=== PATIENT | female | born 1950 | race Caucasian/White ===

== ENCOUNTER 2022-10-13 05:36 | Emergency (ER) | payer OTHER ==
[~2022-10-13] VITALS: Ht 165.1 cm; Wt 83.9 kg
[2022-10-13] MEDS ORDERED: ACETAMINOPHEN ES 500 MG TABLET ONE (06:12)
[2022-10-13] MEDS ORDERED: ACETAMINOPHEN ES 500 MG TABLET PO ONE (06:30)
[2022-10-13] MEDS ORDERED: IV NS 0.9% 500 ML BAG IV ONE (06:30)
[2022-10-13 06:42] LABS: BASOPHILS % (AUTO) 0.3 % (0.0-2.0); EOSINOPHILS # (AUTO) 0.1 K/uL (0.0-0.7); HEMATOCRIT 47 % (33-45); HEMOGLOBIN 15.6 g/dL (11.5-14.8); LYMPHOCYTES # (AUTO) 0.5 K/uL (0.8-4.8); MEAN CORPUSCULAR HEMOGLOBIN 32 PG (26.0-33.0); MEAN CORPUSCULAR HGB CONC 33 g/dl (31.0-36.0); MEAN CORPUSCULAR VOLUME 96 fL (82-100); MONOCYTES # (AUTO) 0.9 K/uL (0.1-1.30); MONOCYTES % (AUTO) 9.6 % (2.0-12.0); NEUTROPHILS # (AUTO) 7.9 K/uL (1.8-8.9); NEUTROPHILS % (AUTO) 84.1 % (43.0-81.0); PLATELET COUNT (AUTO) 163 K/uL (150-450); RED BLOOD CELL COUNT(AUTO) 4.94 MIL/uL (4.0-5.2); RED CELL DISTRIBUTION WIDTH 13.8 % (11.5-15.0); WHITE BLOOD COUNT (AUTO) 9.4 K/uL (4.3-11.0)
[2022-10-13] MEDS ORDERED: TDAP [DIPH/PERTUSSIS/TET] 0.5 ML VIAL IM ONE ×2 (07:19→07:30)
[2022-10-13 07:20] LABS: ALANINE AMINOTRANSFERASE 29 U/L (12-78); ALBUMIN 3.4 g/dL (3.4-5.0); ALKALINE PHOSPHATASE 110 U/L (46-116); ASPARTATE AMINOTRANSFERASE 33 U/L (15-37); BILIRUBIN,DIRECT 0.2 mg/dL (0.0-0.2); BILIRUBIN,TOTAL 0.5 mg/dL (0.2-1.0); CALCIUM, SERUM 9.5 mg/dL (8.5-10.1); CARBON DIOXIDE 26 mmol/L (21-32); CHLORIDE 97 mmol/L (98-107); CREATININE 1.3 mg/dL (0.6-1.3); GLUCOSE 259 mg/dL (74-106); POTASSIUM 3.7 mmol/L (3.5-5.1); SODIUM SERUM 135 mmol/L (136-145); TOTAL PROTEIN, SERUM 8.5 g/dL (6.4-8.2); UREA NITROGEN, BLOOD 21 mg/dL (7-18)
[2022-10-13] MEDS ORDERED: BACI/NEOM/POLY B OINT PKT 1 UDPKT PACKET ONE (07:24)
[2022-10-13] MEDS ORDERED: BACI/NEOM/POLY B OINT PKT 1 UDPKT PACKET TP ONE (07:30)
[2022-10-13] MEDS ORDERED: ASPIRIN 81 MG TAB.CHEW ONE (08:00)
[2022-10-13] MEDS ORDERED: ASPIRIN 81 MG TAB.CHEW PO ONE (08:00)
[2022-10-13] MEDS ORDERED: ACETAMINOPHEN 325 MG TABLET ONE (10:40)
[2022-10-13] MEDS ORDERED: ACETAMINOPHEN 325 MG TABLET PO ONE (11:00)
[2022-10-13 14:00] VITALS: BP 131/55; TEMP 98; O2SAT 97
[2022-10-13] MEDS ORDERED: ACYC400T19 PO (14:46)
[2022-10-13] MEDS ORDERED: FURO20TA4 PO (14:46)
[2022-10-13] MEDS ORDERED: FAMO40TA7 PO (14:46)
[2022-10-13] MEDS ORDERED: GLIP10TA11 PO (14:46)
[2022-10-13] MEDS ORDERED: INSU100I14 SQ (14:46)
[2022-10-13] MEDS ORDERED: NPH,100I SQ (14:46)
[2022-10-13] MEDS ORDERED: MONT10TA22 PO (14:46)
[2022-10-13] MEDS ORDERED: FENO160T PO (14:46)
[2022-10-13] MEDS ORDERED: OMEG-72 PO (14:46)
== END 2022-10-13 15:48 | disposition short-term general hospital (02) ==
LOC: ER 05:42
DX: I21.4 Non-ST elevation (NSTEMI) myocardial infarction (principal); S00.83XA Contusion of other part of head, initial encounter; S50.312A Abrasion of left elbow, initial encounter; G89.29 Other chronic pain; M54.40 Lumbago with sciatica, unspecified side; U07.1 COVID-19; I11.0 Hypertensive heart disease with heart failure; I50.9 Heart failure, unspecified; E11.9 Type 2 diabetes mellitus without complications; Z88.8 Allergy status to other drugs, medicaments and biological substances; W18.30XA Fall on same level, unspecified, initial encounter; Y93.89 Activity, other specified; Y92.89 Other specified places as the place of occurrence of the external cause; Y99.8 Other external cause status
CPT/HCPCS: 99285; 96360; 70450; 71045; 87426; 93005 ×2; 73080; 85025; 80048; 80076; 36415; 84484 ×2; 82962; J7040; C9803; 90715